=== PATIENT | female | born 1985 | race Caucasian/White ===

== ENCOUNTER 2018-03-22 19:15 | Emergency (ER) | payer SELFPAY ==
[~2018-03-22] VITALS: Ht 157.5 cm; Wt 90.7 kg
[2018-03-22 19:24] VITALS: BP 136/83; Ht 157.5 cm; Wt 90.7 kg
[2018-03-22] MEDS ORDERED: PROZAC20 MG PO (19:24)
[2018-03-22 20:11] LABS: BASOPHILS 0.4 % (0-2); EOSINOPHILS 3.7 % (0-7); HEMATOCRIT 38.2 % (36.0-48.0); IMMATURE GRANULOCYTES 0.3 % (0-5); LYMPHOCYTES 32.6 % (15-50); MCH 30.8 pg (26.0-34.0); MCV 90.5 fL (80.0-100.0); MEAN PLATELET VOLUME 11.2 fL (7.4-10.4); RBC 4.22 10x6/uL (4.00-5.40); RDW 13.6 % (11.5-14.5); WBC 10.7 10x3/uL (4.8-10.8)
[2018-03-22 20:26] LABS: APPEARANCE CLEAR (CLEAR); COLOR YELLOW (YELLOW)
[2018-03-22 20:27] LABS: BILIRUBIN NEGATIVE (NEGATIVE); GLUCOSE NEGATIVE (NEGATIVE); KETONE NEGATIVE (NEGATIVE); NITRITE NEGATIVE (NEGATIVE); PROTEIN NEGATIVE (NEGATIVE); SPECIFIC GRAVITY 1.025 (1.005-1.020); UROBILINOGEN NORMAL (NORMAL)
[2018-03-22 20:28] LABS: BACTERIA MANY /hpf (NONE SEEN); RED CELLS - URINE OCC /hpf (0-5)
[2018-03-22 20:31] LABS: PLATELET COUNT 230 10x3/uL (130-400)
[2018-03-22 20:44] LABS: ALBUMIN 3.6 g/dL (3.4-5.0); ALKALINE PHOSPHATASE 60 U/L (46-116); ALT (SGPT) 32 U/L (10-68); BILIRUBIN - TOTAL 0.16 mg/dL (0.2-1.3); CALC OSMOLALITY 278 mosm/kg (275-300); CALCIUM 8.6 mg/dL (8.5-10.1); CARBON DIOXIDE 22.3 mmol/L (21.0-32.0); CHLORIDE - SERUM 105 mmol/L (98-107); CREATININE - SERUM 0.7 mg/dL (0.6-1.3); GLUCOSE 119 mg/dL (74-106); POTASSIUM - SERUM 3.6 mmol/L (3.5-5.1); PROTEIN - SERUM 7.4 g/dL (6.4-8.2); SODIUM 139 mmol/L (136-145); UREA NITROGEN 13 mg/dL (7-18); eGFR NON AFRICAN AMERICAN > 90 mL/min (90-120)
[2018-03-22 20:51] LABS: HCG SERUM NEGATIVE (NEGATIVE)
[2018-03-22 20:54] LABS: CREATINE KINASE 113 UL (21-215)
[2018-03-22 20:56] LABS: TROPONIN-I < 0.017 ng/mL (0.000-0.060)
== END 2018-03-22 23:20 | disposition left against medical advice (07) ==
LOC: D.ER 19:15
PROVIDERS: Family Medicine
DX: R55 Syncope and collapse (principal)

== ENCOUNTER 2018-09-02 13:34 | Emergency (ER) | payer OTHER ==
[~2018-09-02] VITALS: Ht 157.5 cm; Wt 81.8 kg
[~2018-09-02 13:34] MED LIST: PROZAC20 MG PO
[2018-09-02 13:46] VITALS: Ht 157.5 cm; Wt 81.8 kg
[2018-09-02 14:53] LABS: HCG URINE NEGATIVE (NEGATIVE)
[2018-09-02 15:04] LABS: INR 1.05 (0.85-1.17); PROTIME 13.2 SECONDS (11.6-15.0)
[2018-09-02 15:09] LABS: APTT 39.2 SECONDS (22.8-39.4)
[2018-09-02 15:23] LABS: CKMB 0.9 U/L (0.0-3.6); CREATINE KINASE 103 UL (21-215); MAGNESIUM - SERUM 1.9 mg/dL (1.8-2.4)
[2018-09-02 15:27] LABS: TROPONIN-I < 0.017 ng/mL (0.000-0.060)
[2018-09-02] MEDS ORDERED: VISTARIL50 MG PO (16:09)
[2018-09-02 16:28] VITALS: BP 127/75
== END 2018-09-02 16:26 | disposition home or self-care (01) ==
LOC: D.ER 13:34
PROVIDERS: Family Medicine
DX: F41.9 Anxiety disorder, unspecified (principal); F32.9 Major depressive disorder, single episode, unspecified

== ENCOUNTER 2019-09-01 10:56 | Emergency (ER) | payer SELFPAY ==
[~2019-09-01] VITALS: Ht 157.5 cm; Wt 68.2 kg
[~2019-09-01 10:56] MED LIST changes: +VISTARIL50 MG PO
[2019-09-01 11:00] VITALS: BP 143/87; Ht 157.5 cm; Wt 68.2 kg
[2019-09-01] MEDS ORDERED: KLONOPIN1 MG PO (11:01)
[2019-09-01] MEDS ORDERED: PROZAC20 MG PO (11:17)
[2019-09-01] MEDS ORDERED: MACROBID100 MG PO (11:17)
[2019-09-01 12:20] LABS: BILIRUBIN NEGATIVE (NEGATIVE); GLUCOSE 50 mg/dL (NEGATIVE); KETONE SMALL mg/dL (NEGATIVE); NITRITE NEGATIVE (NEGATIVE); UROBILINOGEN NORMAL (NORMAL)
== END 2019-09-01 12:54 | disposition home or self-care (01) ==
LOC: D.ER 10:56
PROVIDERS: Emergency Medicine
DX: N39.0 Urinary tract infection, site not specified (principal); F32.9 Major depressive disorder, single episode, unspecified; R11.2 Nausea with vomiting, unspecified; R51 Headache

== ENCOUNTER 2019-09-03 19:17 | Emergency (ER) | payer SELFPAY ==
[~2019-09-03] VITALS: Ht 157.5 cm; Wt 68.2 kg
[~2019-09-03 19:17] MED LIST changes: +KLONOPIN1 MG PO; +MACROBID100 MG PO
[2019-09-03 19:25] VITALS: Ht 157.5 cm; Wt 68.2 kg
[2019-09-03 19:54] LABS: BASOPHILS 0.4 % (0-2); EOSINOPHILS 3.3 % (0-7); HEMATOCRIT 36.6 % (36.0-48.0); HEMOGLOBIN 12.4 g/dL (12-16); IMMATURE GRANULOCYTES 0.2 % (0-5); LYMPHOCYTES 50.2 % (15-50); MCH 31.3 pg (26.0-34.0); MCHC 33.9 g/dL (31.0-37.0); MCV 92.4 fL (80.0-100.0); MEAN PLATELET VOLUME 11.1 fL (7.4-10.4); MONOCYTES 9.1 % (2-11); NEUTROPHILS 36.8 % (40-80); PLATELET COUNT 270 10x3/uL (130-400); RBC 3.96 10x6/uL (4.00-5.40); RDW 13.5 % (11.5-14.5); WBC 9.2 10x3/uL (4.8-10.8)
[2019-09-03 20:03] LABS: CALC OSMOLALITY 277 mosm/kg (275-300); CALCIUM 8.8 mg/dL (8.5-10.1); CARBON DIOXIDE 28.2 mmol/L (21.0-32.0); CHLORIDE - SERUM 105 mmol/L (98-107); CREATININE - SERUM 0.7 mg/dL (0.6-1.3); GLUCOSE 91 mg/dL (74-106); POTASSIUM - SERUM 3.9 mmol/L (3.5-5.1); SODIUM 140 mmol/L (136-145); UREA NITROGEN 10 mg/dL (7-18); eGFR NON AFRICAN AMERICAN > 90 mL/min (90-120)
[2019-09-03 20:11] LABS: ALBUMIN 3.6 g/dL (3.4-5.0); ALKALINE PHOSPHATASE 60 U/L (30-120); ALT (SGPT) 32 U/L (10-68); BILIRUBIN - TOTAL 0.31 mg/dL (0.2-1.3); PROTEIN - SERUM 6.8 g/dL (6.4-8.2)
[2019-09-03 20:12] LABS: BILIRUBIN NEGATIVE (NEGATIVE); GLUCOSE NEGATIVE (NEGATIVE); KETONE NEGATIVE (NEGATIVE); NITRITE NEGATIVE (NEGATIVE); SPECIFIC GRAVITY 1.015 (1.005-1.020); UROBILINOGEN NORMAL (NORMAL)
[2019-09-03 20:21] LABS: EOSINOPHILS 1 % (0-7); LYMPHOCYTES 63 % (15-50); MONOCYTES 1 % (2-11); NEUTROPHILS 35 % (40-80); PLATELET ESTIMATE NORMAL
[2019-09-03 20:22] LABS: TEAR DROP CELLS OCC
[2019-09-03] MEDS ORDERED: ZOFRAN ODT4 MG/UDTAB PO (21:12)
[2019-09-03] MEDS ORDERED: BENTYL 20 MG TA20 MG PO (21:12)
[2019-09-03 22:37] VITALS: BP 122/81
== END 2019-09-03 22:37 | disposition home or self-care (01) ==
LOC: D.ER 19:17
PROVIDERS: Family Medicine
DX: N39.0 Urinary tract infection, site not specified (principal); R10.30 Lower abdominal pain, unspecified; R11.2 Nausea with vomiting, unspecified

== ENCOUNTER 2020-02-07 20:30 | Emergency (ER) | payer SELFPAY ==
[~2020-02-07] VITALS: Ht 157.5 cm; Wt 81.8 kg
[~2020-02-07 20:30] MED LIST changes: +BENTYL 20 MG TA20 MG PO; +ZOFRAN ODT4 MG/UDTAB PO
[2020-02-07 20:51] VITALS: BP 123/88; Ht 157.5 cm; Wt 81.8 kg
[2020-02-07 21:07] LABS: BASOPHILS 0.2 % (0-2); EOSINOPHILS 1.4 % (0-7); HEMATOCRIT 41.4 % (36.0-48.0); HEMOGLOBIN 13.9 g/dL (12-16); IMMATURE GRANULOCYTES 0.1 % (0-5); MCH 31.3 pg (26.0-34.0); MCHC 33.6 g/dL (31.0-37.0); MCV 93.2 fL (80.0-100.0); MEAN PLATELET VOLUME 11.3 fL (7.4-10.4); MONOCYTES 7.2 % (2-11); NEUTROPHILS 81.1 % (40-80); PLATELET COUNT 264 10x3/uL (130-400); RBC 4.44 10x6/uL (4.00-5.40); RDW 12.6 % (11.5-14.5); WBC 8.6 10x3/uL (4.8-10.8)
[2020-02-07 21:18] LABS: CALC OSMOLALITY 281 mosm/kg (275-300); CALCIUM 9.3 mg/dL (8.5-10.1); CARBON DIOXIDE 27.5 mmol/L (21.0-32.0); CHLORIDE - SERUM 107 mmol/L (98-107); CREATININE - SERUM 0.7 mg/dL (0.6-1.3); GLUCOSE 112 mg/dL (74-106); POTASSIUM - SERUM 3.7 mmol/L (3.5-5.1); SODIUM 141 mmol/L (136-145); UREA NITROGEN 12 mg/dL (7-18); eGFR NON AFRICAN AMERICAN > 90 mL/min (90-120)
[2020-02-07 21:20] LABS: ALKALINE PHOSPHATASE 71 U/L (30-120); ALT (SGPT) 35 U/L (10-68); BILIRUBIN - TOTAL 0.36 mg/dL (0.2-1.3); MAGNESIUM - SERUM 2.2 mg/dL (1.8-2.4); PROTEIN - SERUM 7.7 g/dL (6.4-8.2)
[2020-02-07 21:27] LABS: GLUCOSE NEGATIVE (NEGATIVE); KETONE SMALL mg/dL (NEGATIVE); NITRITE NEGATIVE (NEGATIVE)
[2020-02-07 21:28] LABS: BILIRUBIN NEGATIVE (NEGATIVE); UROBILINOGEN NORMAL (NORMAL)
[2020-02-07 21:33] LABS: UDS - AMPHET NEGATIVE QUAL (NEGATIVE); UDS - BARB NEGATIVE QUAL (NEGATIVE); UDS - BENZO POSITIVE QUAL (NEGATIVE); UDS - COCAINE NEGATIVE QUAL (NEGATIVE); UDS - OPIATE POSITIVE QUAL (NEGATIVE); UDS - PCP NEGATIVE QUAL (NEGATIVE); UDS - THC NEGATIVE QUAL (NEGATIVE)
--- NOTE | 2020-02-07 21:47 | NUR ---
DR WARREN NOTIFIED AND REVIEWED PT's BEHAVIOR AND ASSESSMENT RESULTS. PT IS A LOW RISK PER DR WARREN. DR WARREN STATED TO GIVE RESOURCES TO PT AT TIME OF DISCHARGE, NO FURTHER ORDERS AT THIS TIME. RESOURCES REVIEWED WITH PT AND HE VERBALIZED UNDERSTANDING.
== END 2020-02-07 23:12 | disposition home or self-care (01) ==
LOC: D.ER 20:30
PROVIDERS: Family Medicine
DX: F19.10 Other psychoactive substance abuse, uncomplicated (principal); F32.9 Major depressive disorder, single episode, unspecified